=== PATIENT | female | born 1980 | race Caucasian/White ===

== ENCOUNTER 2020-05-25 06:13 | Emergency (ER) | payer OTHER ==
[~2020-05-25 06:13] MED LIST: ANTIBIOTIC1 CR1 TP; ATIVAN0.5 MG PO; CLINDAMYCIN HC300 MG PO; CLINDAMYCIN150 MG PO; EFFEXOR75 MG PO; FLEXERIL10 MG PO; FLONASE 0.05% 121 EA NAS; HYDROCODONE BIT1 T11 PO; IBU-6600 MG PO; KEFLEX500 MG PO; MOTRIN800 MG PO; PERCOCET 325 MG1 TA6 PO; PHENERGAN W/DM120 ML PO; PREDNICOT10 MG PO; ULTRAM50 MG PO; VICODIN 5/500 505 MG PO; VITAMIN D400 I1 PO
[2020-05-25 06:19] VITALS: BP 129/79
== END 2020-05-25 09:15 | disposition home or self-care (01) ==
LOC: ED 06:13
DX: S63.105A Unspecified dislocation of left thumb, initial encounter (principal); F17.200 Nicotine dependence, unspecified, uncomplicated; X58.XXXA Exposure to other specified factors, initial encounter; Y93.89 Activity, other specified; Y92.89 Other specified places as the place of occurrence of the external cause; Y99.8 Other external cause status

== ENCOUNTER 2022-06-01 13:07 | Emergency (ER) | payer OTHER | END 2022-06-01 13:11 | disposition left against medical advice (07) | LOC: ED 13:07 | DX: Z48.02 Encounter for removal of sutures (principal); Z53.21 Procedure and treatment not carried out due to patient leaving prior to being seen by health care provider ==